=== PATIENT | female | born 1975 | race Caucasian/White ===

== ENCOUNTER 2017-08-22 13:54 | Outpatient (RCR) | payer SELFPAY | END 2017-09-17 | disposition home or self-care (01) | LOC: WCC 13:54 | DX: T86.828 Other complications of skin graft (allograft) (autograft) (principal) | CPT/HCPCS: G0277 ×17 ==

== ENCOUNTER 2017-09-18 09:46 | Outpatient (RCR) | payer SELFPAY | END 2017-10-18 | disposition home or self-care (01) | LOC: WCC 09:46 | DX: T86.828 Other complications of skin graft (allograft) (autograft) (principal) | CPT/HCPCS: G0277 ×10 ==